=== PATIENT | female | born 1990 ===

== ENCOUNTER → 2023-11-05 12:18 | Outpatient (CLI) | payer OTHER, SELFPAY ==
--- NOTE | 2023-11-05 12:23 | DI.US.S_ITS ---
PROCEDURE: US RENAL COMPLETE INDICATIONS: LEFT LOWER QUADRANT PAIN. . TECHNIQUE: Real-time scanning was performed of the kidneys and bladder, with image documentation. COMPARISON: None. FINDINGS: Kidneys: Kidneys are normal in size. Right kidney measures 10.2 cm long; left kidney measures 2.0 cm long. Right renal cortical thickness is 9.7 cm; left renal cortical thickness is 1.9 cm. Renal cortical echotexture is normal. No hydronephrosis or nephrolithiasis. No suspicious solid mass lesions. Bladder: Post-void residual is 25 mL. Pre-void images demonstrate no intraluminal masses or stones. On pre-void images, either ureteral jets are noted with color Doppler interrogation. (Of note, ureteral jets may not be detectable in up to 25% of cases due to insufficient differences in specific gravity between ureteral and bladder urine). Miscellaneous: No free pelvic fluid. IMPRESSION: Normal sonographic appearance of the kidneys and bladder. Dictated by: Davis Slaughter M.D. on 11/05/2023 at 13:53 Approved by: Davis Slaughter M.D. on 11/05/2023 at 13:57
--- NOTE | 2023-11-05 12:23 | DI.US.S_ITS ---
PROCEDURE: US OB LIMITED INDICATIONS: LEFT LOWER QUADRANT PAIN - EVALUATE OVARIES OUTSIDE/PRIOR DATING DATA: The calculations are made using the provided ANTOINE of 04/27/2024. TECHNIQUE: Real-time scanning was performed of the fetus and maternal ovaries, with image documentation. Color and spectral Doppler of the ovaries was performed. Endovaginal scanning: Not performed COMPARISON: None. FINDINGS: A single living intrauterine gestation is present. Presentation: Variable. Placenta: Placental position is posterior, without previa. Amniotic fluid index: Visibly normal heart rate: 150 beats per minute. Maternal cervical canal: Not evaluated Clinically estimated gestational age: 15 weeks 1 day Targeted ultrasound of the ovaries was performed. The right ovary was not visualized due to overlying bowel gas and positioning. Left ovary measures 5.6 x 2.8 by 3.6 centimeters, volume of 29 milliliter. Normal arterial and venous waveforms. IMPRESSION: Right ovary not visualized. Left ovary is mildly enlarged, measuring 29 milliliter. No cyst or mass identified. Normal arterial and venous waveforms. Dictated by: Davis Slaughter M.D. on 11/05/2023 at 13:58 Approved by: Davis Slaughter M.D. on 11/05/2023 at 14:00
== END ==
LOC: US 12:22
PROVIDERS: Referring Provider Nurse Practitioner Obstetrics & Gynecology; Visit Provider Nurse Practitioner Obstetrics & Gynecology
DX: O99.891 Other specified diseases and conditions complicating pregnancy (principal); R10.32 Left lower quadrant pain; Z3A.15 15 weeks gestation of pregnancy
CPT/HCPCS: 76770; 76815

== ENCOUNTER → 2023-11-07 09:37 | Outpatient (CLI) | payer OTHER, SELFPAY ==
[2023-11-07 10:39] LABS: Add Manual Diff / Slide Review NO; Basophils Absolute Auto 0 /uL (0-100); Basophils Percent Auto 0.2 % (0-2); Eosinophils Absolute Auto 100 /uL (0-450); Hematocrit 39.3 % (36-46); Hemoglobin 13.5 g/dL (12.0-16.0); Lymphocytes Absolute Auto 1800 /uL (1100-4500); Lymphocytes Percent Auto 16.9 % (25-40); Mean Corpuscular HGB Conc 34.5 % (30-36); Mean Corpuscular Hemoglobin 31.7 PG (26-34); Mean Corpuscular Volume 91.8 fL (80-100); Monocytes Absolute Auto 800 /uL (0-900); Monocytes Percent Auto 7.8 % (3-14); Neutrophils Absolute Auto 7700 /uL (1500-7000); Neutrophils Percent Auto 74.1 % (50-75); Platelet Count 285 X10^3/uL (150-400); Red Blood Cell Count 4.28 X10^6/uL (4.0-5.2); White Blood Cell Count 10.4 X10^3/uL (4.5-11.0)
[2023-11-07 10:57] LABS: Alanine Aminotransferase 19 IU/L (<35); Albumin 3.6 g/dL (3.5-5.0); Albumin Globulin Ratio 0.9 (1.0-2.8); Alkaline Phosphatase 65 U/L (38-126); Aspartate Aminotransferase 26 IU/L (14-36); BUN Creatinine Ratio 8.6 (6-22); Bilirubin Total 0.6 mg/dL (0.2-1.3); Blood Urea Nitrogen 5 mg/dL (7-17); Calcium 9.4 mg/dL (8.4-10.2); Carbon Dioxide 22 mmol/L (22-32); Chloride 105 mmol/L (98-107); Estimated Glomerular Filt Rate > 60 mL/min (>60); Globulin 3.8 g/dL (1.7-4.1); Glucose 78 mg/dL (70-100); HEMOLYSIS < 15 (0-50); Potassium 3.8 mmol/L (3.4-5.1); Sodium 132 mmol/L (137-145); Total Protein 7.4 g/dL (6.3-8.2)
[2023-11-07 12:07] LABS: Glucose Tol Interpretation INTERPRETATION
[2023-11-07 12:46] LABS: Glucose 2 Hour 120 mg/dL (70-140)
[2023-11-07 14:18] LABS: Creatinine Urine Random 216.77 mg/dL; Protein (Total) Urine Random 6 mg/dL (0-12); Protein Creatinine Ratio Urine 0.02 GRAM/24H
[2023-11-09 16:25] LABS: Glucose Fasting 72 mg/dL (70-100)
[2023-11-09 16:25] LABS: Glucose 1 Hour 120 mg/dL (70-170)
== END ==
PROVIDERS: Referring Provider Nurse Practitioner Obstetrics & Gynecology; Visit Provider Nurse Practitioner Obstetrics & Gynecology
DX: Z34.90 Encounter for supervision of normal pregnancy, unspecified, unspecified trimester (principal); Z3A.16 16 weeks gestation of pregnancy; Z13.1 Encounter for screening for diabetes mellitus
CPT/HCPCS: 36415; 80053; 82570; 82951; 82952; 84156; 85025

== ENCOUNTER → 2023-12-12 10:54 | Outpatient (CLI) | payer OTHER, SELFPAY ==
--- NOTE | 2023-12-12 10:55 | DI.US.S_ITS ---
PROCEDURE: US OB >= 14 WEEKS FETUS INDICATIONS: COMPLETE ANATOMY SCAN OUTSIDE/PRIOR DATING DATA: The calculations are made using the working ANTOINE of 04/27/2024. TECHNIQUE: Real-time scanning was performed of the fetus, with image documentation and biometric measurements. Endovaginal scanning: Not performed COMPARISON: None. FINDINGS: General: A single living intrauterine gestation is present. Presentation: Vertex. Placenta: Placental position is posterior , without previa. Amniotic fluid index: 20.1 cm, normal range is 5-24 cm. Single deepest vertical pocket is 5.7 cm. heart rate: 157 beats per minute. Maternal cervical canal: 4.5 cm long. Normal lower limit is 2.5 cm. biometrics: Biparietal diameter: 4.6 cm, 19 weeks 6 days Head circumference: 16.9 cm, 19 weeks 4 days Abdominal circumference: 16 cm, 21 weeks 1 day Femur length: 3.4 cm, 20 weeks 4 days Clinically estimated gestational age: 20 weeks 3 days Composite gestational age from present scan: 20 weeks 2 days Estimated weight and percentile: 372 g, 61 percentile Anatomic survey: Neuro: Ventricles are non-dilated at less than 10 mm. Cisterna magna is normal at 3-11 mm. Cerebellum is normal in size and morphology. Nuchal skin fold: Normal at less than 6 mm between 14-21 weeks gestational age. Face: Nose and lips, facial profile are normal. Spine: No evidence for spina bifida. Heart: 4-chambered heart is present, with normal ventricular outflow tracts. Diaphragm: Diaphragm is intact. Stomach: Left-sided stomach is present. Kidneys: No hydronephrosis. Normal is less than 5 mm in 2nd trimester, less than 7 mm in 3rd trimester. Cord: 3-vessel cord has orthotopic insertion. Bladder: Normal in size. Extremities: All 4 extremities identified. IMPRESSION: Single living intrauterine at 20 weeks 3 days, ANTOINE of 04/27/2024. Estimated weight of 372 g, 61st percentile. Normal anatomy survey. We strive to produce accurate, complete, and clear reports of imaging services. To assist us in improving patient care, this report was composed using standard report templates and voice recognition software. Therefore, it may contain abnormal punctuation, insertions and/or omissions. Occasional wrong-word or sound-alike substitutions may occur. Though we review the report and make efforts to correct it, we do recommend that the report be read carefully in proper context to recognize any text inaccuracies. Dictated by: Davis Slaughter M.D. on 12/12/2023 at 17:09 Approved by: Davis Slaughter M.D. on 12/12/2023 at 17:12
== END ==
PROVIDERS: Referring Provider Nurse Practitioner Obstetrics & Gynecology; Visit Provider Nurse Practitioner Obstetrics & Gynecology
DX: Z34.92 Encounter for supervision of normal pregnancy, unspecified, second trimester (principal); Z3A.20 20 weeks gestation of pregnancy
CPT/HCPCS: 76811

== ENCOUNTER 2024-04-23 12:44 | Inpatient (IN) | payer OTHER, SELFPAY ==
--- NOTE | 2024-04-23 12:55 | PM.OBHP.1 ---
OB HPI Date/Time Date of admission: 04/23/24 Date Patient Seen: 04/23/24 Time Patient Seen: 12:56 History of Present Condition Chief complaint: OBS OF LABOR : 1 Para: 0 Estimated Date of Delivery: 04/27/24 Estimated Gestational Age (weeks): 39.3 Narrative: Diann Eaton is a 33 year old female @ 39wks 3 days by 7wk US presents for labor admission. Seen in clinic this morning with ROM for clear fluid during CE at 1140. Has been feeling mild, irregular cramping for a few days. No vaginal bleeding. Elevated BP in clinic. No headache, vision changes, RUQ pain or increased edema. Uncomplicated care with CNMs. Planning no intervention and previously declined IV access, but agrees to it for the administration of antibiotics. Declined LDASA throughout . Partner, Eyad, is present and supportive. History of Present care: good care, initiated at week # (6wks), number of visits (12) and pounds weight gain (59) Dating criteria: based on 1st trimester US only Ultrasounds: normal mid trimester US Medical complications: none Preadmission Labs Blood type: A (+) positive -: Antibody screen: negative, GBS status: positive, HBsAG: negative, HIV: negative and RPR/VDLR: negative -: Chlamydia screen: not detected and Gonorrhea screen: not detected -: Rubella: immune and Varicella: immune HCT: 39.8 HCAB: negative Cell-free DNA: Negative x3 1 hr GTT: 129 Evaluation Evaluation Baseline heart rate: 140 Variability: Moderate (11-25) monitor accelerations: Absent Monitor Decelerations: Variable (single) Dilation (cm): 3 Effacement (%): 70 Dilation: 3-4 cm Effacement: 60-70% station: -3 Position of cervix: posterior Consistency: medium Navarro score: 5 PFSH Medical History (Updated 04/23/24 @ 13:56 by Nancy Fleming CNM) Genital herpes Social History (Updated 04/23/24 @ 13:55 by Nancy Fleming CNM) marital status: household members: significant other lives independently: Yes housing: house Meds Home Medications and Allergies Allergies Allergy/AdvReac Type Severity Reaction Status Date / Time No Known Drug Allergies Allergy Verified 04/23/24 12:59 Review of Systems Review of Systems ROS: Yes All systems reviewed with the patient and are negative except as otherwise documented OB Exam Vital signs Blood Pressure: 149/86 Pulse Rate: 106 Resp Effort & Inspection: normal respiratory effort and able to speak in complete sentences Auscultation: clear to auscultation bilaterally Cardio Rate: regular rate Rhythm: regular rhythm Heart Sounds: S1 normal and S2 normal Extremities Lower extremity: Yes normal to inspection DTR's: Rt Patellar: 1+ and Lt Patellar: 1+ Presentation: vertex Objective Labs 04/23/24 13:40 04/23/24 13:40 Assessment and Plan Assessment and Plan Assessment and Plan narrative: A: Term nullipara PROM x 2 hours without sx of infection GBS prophylaxis indicated Gestational hypertension Cat II FHR P: Admit, routine orders with ampicillin for GBS prophylaxis. Continuous EFM. Counseld on options for expectant vs active management of PROm with through discussion of risks and benefits of each. Bunny strongly declines pitocin. Recommend cycles of breast pump/walk/rest to promote labor and she is n agreement after she eats. During discussion, severe range BP was taken but not sustained for 15 minutes. Counseled on recommendation for BP medication and MgSO4 if severe range BP persists for 15 minute sor more. Notified of patient's admission status and preeclampsia work-up, will consult her if BPs reach severe range. Time-Based Coding :: [TOTAL MINUTES] spent with patient and on the chart (including review of chart, obtaining history, exam, reviewing outside data, placing orders, documenting exam and treatment plan, and counseling patient) on [DATE].
[2024-04-23] MEDS: AMPICILLIN 2,000 MG in SODIUM CHLORIDE 0.9% 100 ML 200 MG IV (13:53)
[2024-04-23] MEDS: LACTATED RINGERS 1,000 ML 100 ML IV (13:53)
[2024-04-23 13:58] VITALS: BP 149/86; PULSE 106
[2024-04-23 14:17] LABS: Add Manual Diff / Slide Review NO; Basophils Absolute Auto 0 /uL (0-100); Basophils Percent Auto 0.3 % (0-2); Eosinophils Absolute Auto 100 /uL (0-450); Eosinophils Percent Auto 0.6 % (2-4); Hematocrit 38.4 % (36-46); Lymphocytes Absolute Auto 1300 /uL (1100-4500); Lymphocytes Percent Auto 14.3 % (25-40); Mean Corpuscular HGB Conc 33.9 % (30-36); Mean Corpuscular Hemoglobin 30.6 PG (26-34); Mean Corpuscular Volume 90.4 fL (80-100); Monocytes Absolute Auto 600 /uL (0-900); Neutrophils Absolute Auto 7100 /uL (1500-7000); Neutrophils Percent Auto 77.8 % (50-75); Platelet Count 263 X10^3/uL (150-400); Red Blood Cell Count 4.25 X10^6/uL (4.0-5.2); Red Cell Distribution Width 14.4 % (11.6-14.8); White Blood Cell Count 9.1 X10^3/uL (4.5-11.0)
[2024-04-23 14:30] LABS: Alanine Aminotransferase 31 IU/L (<35); Albumin 3.6 g/dL (3.5-5.0); Alkaline Phosphatase 141 U/L (38-126); Aspartate Aminotransferase 32 IU/L (14-36); BUN Creatinine Ratio 8.8 (6-22); Bilirubin Total 0.5 mg/dL (0.2-1.3); Blood Urea Nitrogen 6 mg/dL (7-17); Calcium 9.2 mg/dL (8.4-10.2); Carbon Dioxide 19 mmol/L (22-32); Chloride 106 mmol/L (98-107); Estimated Glomerular Filt Rate > 60 mL/min (>60); Globulin 3.6 g/dL (1.7-4.1); Glucose 128 mg/dL (70-100); HEMOLYSIS < 15 (0-50); Potassium 3.4 mmol/L (3.4-5.1); Sodium 136 mmol/L (137-145); Total Protein 7.2 g/dL (6.3-8.2)
[2024-04-23 14:32] LABS: Creatinine Urine Random 70.66 mg/dL; Protein (Total) Urine Random 12 mg/dL (0-12); Protein Creatinine Ratio Urine 0.16 GRAM/24H
[2024-04-23 15:49] VITALS: BP 140/94
[2024-04-23] MEDS: AMPICILLIN 1,000 MG in SODIUM CHLORIDE 0.9% 100 ML 200 MG IV ×2 (17:53→22:02)
--- NOTE | 2024-04-23 19:12 | PM.OBPNLAB ---
Date/Time Date Patient Seen: 04/23/24 Time Patient Seen: 19:00 Pain Control Pain control: other Comments: Ambulating in room, using ball for comfort. Using breast pump to stimulate contractions. She has had one painful contraction during pumping, some mild cramping. Willing to take hima oil because she feels like it is natural, refuses Pitocin. Well supported by [place]. VS: BP 154/80, HR 113, RR 16, Temp 37.1 Pelvic Exam Dilation (cm): 3 Effacement (%): 70 station: -3 Amniotic membrane status: Ruptured ( clear fluid times 7 hours) Comments: Exam from 1140 this am, no recheck due to ROM. Contractions Contractions on admission: irregular Monitor mode: External Contraction frequency (min): 5 (1-5minutes painless) Contraction duration (min): 1 (30-70seconds long ) Contraction pattern: Irregular Contraction intensity: Mild Status status: Category l Heart Rate Baseline: 145 Monitor Accelerations: Present Monitor Decelerations: Absent Monitor Variability: Moderate Assessment and Plan Comments: A: Expectant Management Irregular painless contractions PROM x 7 hours w/out signs of infection [place] oil induction Gestational Hypertension GBS positive RH positive P: [place] oil 2 ounces repeat in 4 hours PRN Continue continuous monitoring. Encouraged rest, nourishment, and hydration Continue Ampicillin for GBS prophylaxis Will recommend appropriate management and consultation as needed for hypertension
--- NOTE | 2024-04-23 23:39 | PM.OBPNLAB ---
Date/Time Date Patient Seen: 04/23/24 Time Patient Seen: 23:30 Pain Control Pain control: tolerating well Comments: Feeling increased pressure and pain with contractions. Up frequently to us the bathroom, in bed now because her legs are tired and hurting from swelling. Diarrhea and vomiting for the past two hours since castor oil. Unable to tell if leaking fluid still due to increased need to be in the bathroom with diarrhea. Discussed options for pain relief if needed, nitrous or IV medications. She feels like labor is progressing and she is coping well, denies need for pain medication. Well supported by Eyad. VS: BP 143/93, HR 100, RR 18, Temp 37.4 Pelvic Exam Dilation (cm): 3 Effacement (%): 70 station: -3 Amniotic membrane status: Ruptured ( clear fluid times 7 hours) Comments: cervical exam not indicated Contractions Monitor mode: External Contraction frequency (min): 2 (1-4minutes ) Contraction duration (min): 1 Contraction pattern: Irregular Contraction phase: Contraction Contraction intensity: Strong/Firm (palpation) Status status: Category l Heart Rate Baseline: 140 Monitor Accelerations: Present Monitor Decelerations: Absent Monitor Variability: Moderate Assessment and Plan Comments: A: Expectant Management Painful contractions PROM x 12 hours w/out signs of infection [place] oil induction Gestational Hypertension GBS positive RH positive P: Continue continuous monitoring. Encouraged rest, nourishment, and hydration Continue Ampicillin for GBS prophylaxis Will recommend appropriate management and consultation as needed for hypertension Redose mark oil if contractions decrease in frequency/intensity
[2024-04-24] MEDS: AMPICILLIN 1,000 MG in SODIUM CHLORIDE 0.9% 100 ML 200 MG IV ×6 (02:13→22:45)
--- NOTE | 2024-04-24 04:05 | PM.OBPNLAB ---
Date/Time Date Patient Seen: 04/24/24 Time Patient Seen: 04:00 Pain Control Comments: Continued painful contractions, and diarrhea. VS: BP 137/82, HR 103, RR 16, temp 98.5 Pelvic Exam Dilation (cm): 3 Effacement (%): 70 station: -3 Amniotic membrane status: Ruptured (17 hours, clear fluid) Comments: Cervical exam not indicated. Contractions Monitor mode: External Contraction frequency (min): 2 (2-4minutes) Contraction duration (min): 1 (30-70seconds) Contraction pattern: Irregular Status status: Category l Heart Rate Baseline: 145 Monitor Accelerations: Present Monitor Decelerations: Absent Monitor Variability: Moderate Assessment and Plan Comments: A: Expectant Management Painful contractions PROM x 17 hours w/out signs of infection [place] oil induction Gestational Hypertension GBS positive RH positive P: Continue continuous monitoring. Encouraged rest, nourishment, and hydration Continue Ampicillin for GBS prophylaxis Strongly recommended antihypertensives for elevated blood pressures. Will recommend appropriate management and consultation as needed for hypertension Redose castor oil if contractions decrease in frequency/intensity
--- NOTE | 2024-04-24 08:39 | P.PNOB_ITS ---
Date/Time Date Patient Seen: 04/24/24 Time Patient Seen: 08:20 Pain Control Comments: Painful contractions have slowed; now sitting up in bed eating breakfast. Able to talk through contractions, but wincing. Occasionally has a big one. She was able to sleep for a few hours total overnight. Still having some diarrhea. Blood pressures have been in severe range at times but not sustained, no headache, visual changes or epigastric pain. Declined BP medications overnight. Reluctant to start Pitocin because she has heard stories about how bad it is. VS: BP -144/88, HR 112, RR-17, Tempt 98.4F Pelvic Exam Dilation (cm): 3 Effacement (%): 70 station: -3 Amniotic membrane status: Ruptured ( clear fluid times 7 hours) Comments: No cervical exam indicated. Contractions Monitor mode: External Contraction frequency (min): 7 (2-10minutes) Contraction pattern: Irregular Status status: Category l Heart Rate Baseline: 140 Monitor Accelerations: Present Monitor Decelerations: Absent Monitor Variability: Moderate Assessment and Plan Plan: begin patient augmentation Comments: A: Labor augmentation indicated PROM x 20 hours w/out signs of infection Gestational Hypertension vs Pre eclampsia Cat I FHR tracing GBS positive RH positive P: Strong recommendation to manage BP and help labor progress to prevent poor outcomes. Options give include: Oral or IV antihypertensives, epidural for BP management; augmentation with Pitocin, or another dose of [place] oil for labor augmentation. Consented to IV labetolol for severe pressures that are not sustained and augmentation with Pitocin. Continue Ampicillin for GBS prophylaxis Initiate Pitocin augmentation per protocol Repeat PET panel today Encourage rest, nutruition and hydration Updated Dr. Matthew on plan of care. Recommend magnesium sulfate if severe range pressures continue.
[2024-04-24 08:54] VITALS: BP 186/108; PULSE 110
[2024-04-24] MEDS: LABETALOL 20 MG/4 ML SYRINGE IV (08:54)
[2024-04-24] MEDS: OXYTOCIN PREMIX 30 UNIT/500 ML PLAST..BAG IV (08:55)
[2024-04-24] MEDS: NIFEdipine 30 MG TAB ER PO (09:55)
[2024-04-24 10:21] LABS: Add Manual Diff / Slide Review NO; Basophils Absolute Auto 100 /uL (0-100); Basophils Percent Auto 0.6 % (0-2); Eosinophils Absolute Auto 100 /uL (0-450); Eosinophils Percent Auto 0.5 % (2-4); Hematocrit 36.9 % (36-46); Hemoglobin 12.5 g/dL (12.0-16.0); Lymphocytes Absolute Auto 1200 /uL (1100-4500); Lymphocytes Percent Auto 11.1 % (25-40); Mean Corpuscular HGB Conc 33.8 % (30-36); Mean Corpuscular Hemoglobin 30.3 PG (26-34); Mean Corpuscular Volume 89.6 fL (80-100); Monocytes Absolute Auto 900 /uL (0-900); Monocytes Percent Auto 7.9 % (3-14); Neutrophils Absolute Auto 8700 /uL (1500-7000); Neutrophils Percent Auto 79.9 % (50-75); Platelet Count 249 X10^3/uL (150-400); Red Blood Cell Count 4.12 X10^6/uL (4.0-5.2); Red Cell Distribution Width 14.7 % (11.6-14.8); White Blood Cell Count 10.9 X10^3/uL (4.5-11.0)
[2024-04-24 10:40] LABS: Alanine Aminotransferase 31 IU/L (<35); Albumin 3.4 g/dL (3.5-5.0); Albumin Globulin Ratio 1.1 (1.0-2.8); Alkaline Phosphatase 124 U/L (38-126); Aspartate Aminotransferase 30 IU/L (14-36); BUN Creatinine Ratio 8.9 (6-22); Bilirubin Total 0.6 mg/dL (0.2-1.3); Blood Urea Nitrogen 7 mg/dL (7-17); Calcium 9.3 mg/dL (8.4-10.2); Carbon Dioxide 20 mmol/L (22-32); Chloride 107 mmol/L (98-107); Estimated Glomerular Filt Rate > 60 mL/min (>60); Globulin 3.2 g/dL (1.7-4.1); Glucose 142 mg/dL (70-100); HEMOLYSIS < 15 (0-50); Potassium 3.5 mmol/L (3.4-5.1); Sodium 136 mmol/L (137-145); Total Protein 6.6 g/dL (6.3-8.2)
[2024-04-24 10:48] VITALS: BP 134/75; PULSE 105
--- NOTE | 2024-04-24 12:30 | PM.OBPNLAB ---
Date/Time Date Patient Seen: 04/24/24 Time Patient Seen: 12:30 Pain Control Pain control: tolerating well Comments: Not having painful contractions. Pitocin infusing at 14mu/min. Sitting in room eating lunch. No severe range blood pressures since Nifedipine at 0945. VS: BP 134/75, HR 105, Temp 37.0C Pelvic Exam Dilation (cm): 3 Effacement (%): 70 station: -3 Amniotic membrane status: Ruptured (24 hours, leaking small amount clear fluid) Comments: No indication for cervical exam Contractions Monitor mode: External Contraction frequency (min): 2 (2-4minutes) Contraction pattern: Regular Contraction phase: Contraction Contraction intensity: Strong/Firm (palpation) Status status: Category l Heart Rate Baseline: 145 Monitor Accelerations: Present Monitor Decelerations: Absent Monitor Variability: Moderate Assessment and Plan Comments: A: Labor augmentation indicated PROM x 24 hours w/out signs of infection Gestational Hypertension vs Pre eclampsia Cat I FHR tracing GBS positive, adequately treated RH positive P: Oral antihypertensives to manage Blood pressure. Augmentation with Pitocin continued Continue Ampicillin for GBS prophylaxis Review repeat PET panel, stable labs. Encourage rest, nutrition and hydration Will update Dr Matthew as needed for management of severe range blood pressures.
[2024-04-24] MEDS: LIDOCAINE 2% (GLYDO) 6 ML GEL TOP (14:55)
--- NOTE | 2024-04-24 16:16 | PM.OBPNLAB ---
Date/Time Date Patient Seen: 04/24/24 Time Patient Seen: 16:16 Pain Control Pain control: other (Nitrous) Comments: Painful contractions started at 1300 with pitocin at 16 mu/min. Not tolerating contractions well when lying in bed, moaning and calling out. Up at bedside now, standing and using Nitrous Oxide, tolerating contractions better while swaying. Pitocin infusing at 11mu/min. VS: BP 137/88, HR 115, RR 18, Temp 36.8C Pelvic Exam Amniotic membrane status: Ruptured (>28 hours) Comments: Offered cervical exam, patient unable to consent at this time due to pain. Contractions Monitor mode: External Pitocin rate (mU/min): 11 Contraction frequency (min): 2 (2-4minutes) Contraction duration (min): 1 Contraction pattern: Regular Contraction phase: Contraction Contraction intensity: Strong/Firm (palpation) Status status: Category l Heart Rate Baseline: 140 Monitor Accelerations: Present Monitor Decelerations: Absent Monitor Variability: Moderate Assessment and Plan Plan: continuous present management Comments: A: Labor augmentation PROM >28 hours w/out signs of infection Gestational Hypertension vs Pre eclampsia Cat I FHR tracing GBS positive RH positive P: Oral antihypertensives (nifedipine) managing Blood pressure. Continue augmentation with Pitocin Continue Ampicillin for GBS prophylaxis Encourage rest, nutrition and hydration Recommend cervical exam. Will update Dr Mathtew as needed for management of severe range blood pressures.
--- NOTE | 2024-04-24 19:16 | PM.AN.REGBLK ---
Regional Block Pre-procedure PMH/ROS narrative: Diann Eaton is a 33 year old female @ 39wks 3 days by 7wk US presents for labor admission. Seen by OB provider clinic 04/23/24 with ROM for clear fluid during CE at 1140. Elevated BP in clinic. No headache, vision changes, RUQ pain or increased edema per notes. Admitted for IOL following SROM. Now requests labor epidural for increasing labor pain unrelieved by other interventions. PSH/Anesthesia history narrative: See pre-anesthesia sheet ASA Class: III Labs: Hct 36.9 % (36-46) 04/24/24 10:15 Plt Count 249 X10^3/uL (150-400) 04/24/24 10:15 Medications: Current Medications Generic Name Dose Route Start Last Admin Trade Name Freq PRN Reason Stop Dose Admin Calcium Carbonate 1,000 mg 04/23/24 12:52 Calcium Carbonate 500 Mg Tab PO Q2HR PRN Dyspepsia Carboprost Tromethamine 250 mcg 04/23/24 12:52 Carboprost 250 Mcg/Ml Ampul IM Q90M PRN Bleeding Fentanyl 100 mcg 04/23/24 12:52 Fentanyl 100 Mcg/2 Ml Inj IV Q1H PRN Pain, Severe (7-10) Oxytocin/Lactated Ringer's 30 unit in 500 mls @ 200 mls/hr 04/23/24 12:52 Oxytocin Premix IV CONT PRN Bleeding Protocol Tranexamic Acid 1,000 mg/ 100 mls @ 600 mls/hr 04/23/24 12:52 Sodium Chloride IV NOW PRN Bleeding Ampicillin Sodium 1,000 mg/ 100 mls @ 200 mls/hr 04/23/24 17:00 04/24/24 18:26 Sodium Chloride IV 200 mls/hr Q4H WILBERT Administration Oxytocin/Lactated Ringer's 30 unit in 500 mls @ 2 mls/hr 04/23/24 13:00 04/24/24 08:55 Oxytocin Premix IV 2 milliunit/min TITRATE WILBERT 2 mls/hr Administration Protocol 2 MILLIUNIT/MIN Calcium Gluconate 4.65 meq/ 60 mls @ 180 mls/hr 04/23/24 14:25 Sodium Chloride IV NOW PRN MAGNESIUM TOXICITY Labetalol HCl 20 mg 04/23/24 14:25 04/24/24 08:54 Labetalol 20 Mg/4 Ml Syringe IV 20 mg PRN PRN Administration SBP>= 160 or DBP >=110 Protocol Lidocaine HCl 20 ml 04/23/24 12:52 Lidocaine 1% 20 Ml INJ INTRA-OP PRN Post Delivery Methylergonovine Maleate 0.2 mg 04/23/24 12:52 Methylergonovine 0.2 Mg Tablet PO Q6HR PRN Heavy Bleeding Methylergonovine Maleate 0.2 mg 04/23/24 12:52 Methylergonovine 0.2 Mg/Ml Vial IM NOW PRN Bleeding Mineral Oil 30 ml 04/23/24 12:52 Mineral Oil 30 Ml Udc TOP PRN PRN Version Misoprostol 800 mcg 04/23/24 12:52 Misoprostol 200 Mcg Tablet CA NOW PRN Bleeding Misoprostol 400 mcg 04/23/24 12:52 Misoprostol 200 Mcg Tablet SL NOW PRN Bleeding Naloxone HCl 0.2 mg 04/23/24 12:52 Naloxone 0.4 Mg/Ml Vial IV Q2MIN PRN Opiate Reversal Ondansetron HCl 4 mg 04/23/24 12:52 Ondansetron 4 Mg/2 Ml Inj IV Q4HR PRN Nausea And Vomiting Oxytocin 10 unit 04/23/24 12:52 Oxytocin 10 Unit/Ml Vial IM NOW PRN Bleeding Allergies: Allergies Allergy/AdvReac Type Severity Reaction Status Date / Time No Known Drug Allergies Allergy Verified 04/23/24 12:59 Procedure Insertion date: 04/24/24 Insertion time: 18:26 Prep/Local: 1% lidocaine (Chloraprep skin prep) Interspace: L3-L4 Patient position: sitting Needle: 17 gauge Tuohy Loss of resistance with: saline LISETTE at (cm): 8 Catheter placed at SKIN (cm): 17 Insertion: Yes CSF, No Blood, No Paresthesia with insertion, No Paresthesia with injection and No Test dose reaction Initial Medications TEST DOSE time: 18:49 TEST DOSE: 1.5% lidocaine with epinephrine 1:200k (mL): 3 BOLUS DOSE time: 18:51 BOLUS DOSE (mL): 1 BOLUS DOSE med: other (50mcg fentanyl intrathecal, followed by 50mcg fentanyl, 2ml 1% lidocaine, 2 ml 1.5% lidocaine with epi 1:200k as epidural bolus) Infusion INFUSION: 0.125% bupivacaine and with fentanyl 2 mcg/mL Initial rate (mL/hr): 6 (4ml PCEA q15min) Subsequent interventions: Epidural bolus at 1930 5ml 0.25% bupivacaine, 5ml 2% lidocaine. Patient experienced complete relief following bolus. Additional bolus given at 23:25 (5ml 0.25% bupivacaine, 5ml 2% lidocaine). Taken to OR for C/S @ 02:42, see anesthesia record. Epidural removed @ 05:15, tip intact. Post-procedure Anesthesia date START: 04/24/24 Anesthesia time START: 18:16 Anesthesia date END: 04/26/24 Anesthesia time END: 05:15 Post-procedure Anesthesia Assessment: Yes CV function: HR/BP stable, Yes Resp function: RR/sat/airway adequate, Yes Post-op hydration adequate, Yes Pain control adequate, Yes Nausea & vomiting absent, Yes Temperature > 36 C, Yes Mental status appropriate and No Anesthesia complications
--- NOTE | 2024-04-24 19:31 | PM.OBPNLAB ---
Date/Time Date Patient Seen: 04/24/24 Time Patient Seen: 19:32 Pain Control Pain control: epidural Comments: Contractions painful, consented to exam and ROM. Nitrous no longer working so tried the tub, and then requested epidural. Pelvic Exam Dilation (cm): 4.5 Effacement (%): 100 station: -1 Amniotic membrane status: Ruptured (24 hours, leaking small amount clear fluid; forebag ruptured at 1649 with copious clear fluid) Comments: Blood pressures 130s-140s/80s-90s after nifedipine dose and prior to epidural. Decreased with epidural as low as 113/53 & settled out in 130s/80s. HR elevated when out of bath, getting epidural, as high as 125. Settled down to 110s after she was comfortable. Temp: 36.9 F SpO2 97% Contractions Contractions on admission: irregular (painless) Monitor mode: External Pitocin rate (mU/min): 8 (max dose 16; 11 with ROM of forebag so turned down to 6 mu/min until after epidural in place) Contraction frequency (min): 2 (2-4minutes) Contraction pattern: Regular Contraction phase: Contraction Contraction intensity: Strong/Firm (palpation) Status status: Category l Heart Rate Baseline: 145 Monitor Accelerations: Present Monitor Decelerations: Absent Monitor Variability: Moderate Assessment and Plan Assessment: induction ongoing Comments: at 39w4d in early labor GBS pos, adequately treated GHTN versus pre-eclampsia, managed with nifedipine FHR Cat 1 ROM x 32 hours without s/sx of infection Continue pitocin augmentation of labor Forebag ruptured Comfort measures and then anesthesia called for epidural continue prophylaxis for GBS Recheck in 4 hours or sooner PRN.
[2024-04-24] MEDS: CALCIUM CARBONATE 500 MG TAB 1000 MG PO (23:48)
[2024-04-24] MEDS: ONDANSETRON 4 MG/2 ML INJ IV (23:48)
[2024-04-24] MEDS: LACTATED RINGERS 1,000 ML 1000 ML IV (23:57)
--- NOTE | 2024-04-25 00:19 | PM.OBPNLAB ---
Date/Time Date Patient Seen: 04/25/24 Time Patient Seen: 23:45 Pain Control Pain control: epidural Comments: Torie is comfortable with epidural. Complains of her R arm feeling swollen and IV found to be infiltrated and leaking. Vomited recently and feeling shaky. Contraction pain controlled with epidural, some discomfort with cervical exam. Contractions have spaced out likely due to IV infiltration. Difficulty tracing FHTs; replacing toco/US with Treva to see if better tracing. Feels like she can sleep. Well supported by Eyad. VS: BP 141/78, HR 131, RR 18, Temp 37.1C Pelvic Exam Dilation (cm): 5 Effacement (%): 100 station: -1 Amniotic membrane status: Ruptured (36 hours, leaking small amount clear fluid) Contractions Monitor mode: External Contraction frequency (min): 3 (3-8minutes) Contraction duration (min): 1 (60-90sec) Contraction pattern: Regular Contraction phase: Contraction Status status: Category ll Heart Rate Baseline: 145 Monitor Accelerations: Absent Monitor Decelerations: Variable Monitor Variability: Moderate Assessment and Plan Comments: at 39w4d in early labor GBS positive, adequately treated GHTN versus pre-eclampsia, managed currently with nifedipine FHR Cat II Infiltrated IV/minimal cervical change Plan: Replace IV and restart pitocin at 6mu/min Consider IUPC if no cervical change in 4-6 hours. IV LR bolus
[2024-04-25] MEDS: FENT 2MCG/ML BUPIV 0.125% EPI 200 MCG/100 ML PLAST..BAG 8 MCG EPIDURAL ×3 (03:32→21:53)
[2024-04-25] MEDS: AMPICILLIN 1,000 MG in SODIUM CHLORIDE 0.9% 100 ML 200 MG IV ×5 (03:44→20:04)
[2024-04-25] MEDS: LIDOCAINE 2% (GLYDO) 6 ML GEL TOP (05:33)
--- NOTE | 2024-04-25 06:25 | PM.OBPNLAB ---
Date/Time Date Patient Seen: 04/25/24 Time Patient Seen: 06:05 Pain Control Pain control: epidural Comments: Torie Continues to have good pain control with epidural, has good movement of legs. She has been able to sleep off and on. Pitocin up to 20mu/min. IUPC placed due to minimal cervical change and to titrate Pitocin. Tolerating oral hydration well. Comfortable in upright position due to heartburn which is unrelieved by Tums. VS: BP 136/71, HR 116, RR-18, temp 37.1C, O2 sat 97% Pelvic Exam Dilation (cm): 5.5 Effacement (%): 100 station: -1 Amniotic membrane status: Ruptured (42 hours, leaking large amount of clear fluid) Contractions Monitor mode: External Pitocin rate (mU/min): 20 Contraction frequency (min): 2 (2-3min) Contraction duration (min): 1 Contraction pattern: Regular Status status: Category ll Heart Rate Baseline: 145 Monitor Accelerations: Present Monitor Decelerations: Variable Monitor Variability: Moderate Comments: Irregular variables, moslty lasting 10-15seconds Assessment and Plan Assessment: induction ongoing Comments: in prolonged early labor Adequately treated for GBS Pitocin augmentation Cat II FHR tracing IUPC placed Famotidine ordered for heartburn Pitocin continued
[2024-04-25] MEDS: FAMOTIDINE 20 MG/2 ML VIAL IV ×2 (06:59→20:03)
[2024-04-25] MEDS: CITRIC ACID/SODIUM CITRATE 15 ML SOLUTION 30 ML PO ×2 (07:01→20:04)
[2024-04-25] MEDS: LACTOBACILLUS ACIDOPHILUS TABLET 1 EACH PO ×2 (07:54→17:44)
[2024-04-25] MEDS: NIFEdipine 30 MG TAB ER PO (08:58)
[2024-04-25] MEDS: OXYTOCIN PREMIX 30 UNIT/500 ML PLAST..BAG IV (11:27)
--- NOTE | 2024-04-25 12:14 | PM.OBPNLAB ---
Date/Time Date Patient Seen: 04/25/24 Time Patient Seen: 12:00 Pain Control Pain control: epidural Comments: Diann is comfortable with epidural able to take a nap since last exam. Her heartburn has resolved since taking Pepcid & Bicitra, now able to lay on side and change positions frequently. She has good movement of legs and is able to roll herself. Some discomfort with cervical exam. Caput noted & head well applied to cervix. Pitocin stopped by RN for 1hour break due to no accelerations for a period of time, Cat I tracing now Pitocin restarted at 2mu/min. VS: BP 119/71, HR 121, Temp 36.6C Pelvic Exam Dilation (cm): 6.5 Effacement (%): 100 station: -1 Amniotic membrane status: Ruptured (42 hours, leaking large amount of clear fluid) Comments: Good urine output. Contractions Monitor mode: External Pitocin rate (mU/min): 2 (Restarted) Contraction frequency (min): 5 (2-9minutes) Contraction duration (min): 1 (1-3) Contraction pattern: Regular Intrauterine tone measurement: 30 (Resting tone 30mmHg, MVUs for the past two hours between 40-125mmHg) Status status: Category l Heart Rate Baseline: 145 Monitor Accelerations: Present Monitor Decelerations: Absent Monitor Variability: Moderate Assessment and Plan Assessment: induction ongoing Comments: A: Slow progress, early labor GBS positive adequately treated Rupture of membranes 48 hours w/ no signs of infection Cat I FHR tracing Epidural anesthesia Gestational hypertension vs pre-eclampsia P: Recommend less PO water re: heartburn. Pepcid & bicitra given after vomiting episode. Repeat PET panel Restart Pitocin continue to increase as able, until adequate MVUs Continue GBS prophylaxis Encourage frequent position changes and hydration Dr Matthew updated on patient status and plan of care Recheck in 4-6 hours or as needed
--- NOTE | 2024-04-25 15:52 | PM.OBPNLAB ---
Date/Time Date Patient Seen: 04/25/24 Time Patient Seen: 15:45 Pain Control Pain control: epidural Comments: Difficulty getting continuos FHR tracing due to patient positioning, and maternal habitus. IUPC has come out some and is not accurately reading uterine activity. IUPC/US replaced with Treva which has worked best for continuos monitoring. Contractions continue to be irregularly spaced anywhere from 2-8min. Pain well controlled with epidural, good movement able to change positions often, napping in between. Pitocin up to 18mu/min. Leaking moderate amount of clear fluid. Hydrating well and urine output good. Discussed possibility of if minimal change with next exam, Eyad eager to have baby delivered. Diann open to conversation asking appropriate questions about the process of . Encouraged to continue with positions changes and rest until next exam. VS: BP 133/70, HR 114, RR 17, Temp 37.1C Pelvic Exam Dilation (cm): 7 Effacement (%): 100 station: -1 Amniotic membrane status: Ruptured (52 hours, leaking large amount of clear fluid) Contractions Monitor mode: External Pitocin rate (mU/min): 18 Contraction frequency (min): 5 (2-5minutes) Contraction duration (min): 1 (30-80sec) Contraction pattern: Regular Contraction phase: Contraction Contraction intensity: Strong/Firm (with palpation/IUPC removed) Status status: Category ll Heart Rate Baseline: 150 Monitor Accelerations: Present Monitor Decelerations: Variable Monitor Variability: Moderate Assessment and Plan Assessment: induction ongoing Comments: A: Slow progress GBS positive adequately treated Rupture of membranes 52 hours w/ no signs of infection Cat I FHR tracing Epidural anesthesia Gestational hypertension vs pre-eclampsia P: Repeat PET panel Continue Pitocin increase to 30mu/min maximum dose Continue GBS prophylaxis and give probiotic BID Encourage frequent position changes and hydration Discussed slow progress, and possible need for if no change in 4 hours. IUPC removed; external monitoring resumed due to safety for monitoring. Recheck in 4-6 hours or as needed
[2024-04-25 16:47] LABS: Add Manual Diff / Slide Review NO; Basophils Absolute Auto 0 /uL (0-100); Basophils Percent Auto 0.3 % (0-2); Eosinophils Absolute Auto 0 /uL (0-450); Eosinophils Percent Auto 0.2 % (2-4); Hemoglobin 12.1 g/dL (12.0-16.0); Lymphocytes Absolute Auto 1000 /uL (1100-4500); Lymphocytes Percent Auto 6.2 % (25-40); Mean Corpuscular HGB Conc 33.6 % (30-36); Mean Corpuscular Hemoglobin 30.1 PG (26-34); Mean Corpuscular Volume 89.6 fL (80-100); Monocytes Absolute Auto 2000 /uL (0-900); Monocytes Percent Auto 11.9 % (3-14); Neutrophils Absolute Auto 13500 /uL (1500-7000); Neutrophils Percent Auto 81.4 % (50-75); Platelet Count 215 X10^3/uL (150-400); Red Blood Cell Count 4.01 X10^6/uL (4.0-5.2); Red Cell Distribution Width 14.6 % (11.6-14.8); White Blood Cell Count 16.6 X10^3/uL (4.5-11.0)
[2024-04-25 17:01] LABS: Alanine Aminotransferase 28 IU/L (<35); Albumin 3.1 g/dL (3.5-5.0); Alkaline Phosphatase 136 U/L (38-126); Aspartate Aminotransferase 27 IU/L (14-36); BUN Creatinine Ratio 5.3 (6-22); Bilirubin Total 0.8 mg/dL (0.2-1.3); Blood Urea Nitrogen 4 mg/dL (7-17); Calcium 8.5 mg/dL (8.4-10.2); Carbon Dioxide 22 mmol/L (22-32); Chloride 105 mmol/L (98-107); Estimated Glomerular Filt Rate > 60 mL/min (>60); Globulin 3.2 g/dL (1.7-4.1); Glucose 105 mg/dL (70-100); HEMOLYSIS < 15 (0-50); Potassium 3.1 mmol/L (3.4-5.1); Sodium 134 mmol/L (137-145); Total Protein 6.3 g/dL (6.3-8.2)
[2024-04-25 17:12] LABS: Creatinine Urine Random 26.29 mg/dL; Protein (Total) Urine Random 69 mg/dL (0-12); Protein Creatinine Ratio Urine 2.62 GRAM/24H
[2024-04-25] MEDS: ONDANSETRON 4 MG/2 ML INJ IV (20:04)
--- NOTE | 2024-04-25 20:22 | PM.OBPNLAB ---
Date/Time Date Patient Seen: 04/25/24 Time Patient Seen: 20:00 Pain Control Pain control: epidural Comments: Torie is comfortable now, but just had another epidural bolus due to significant left sided pain. Feeling pressure. Shaky. Nauseated, vomited and gagged for 7 minutes after cervical exam. Getting pepcid, zofran and bicitra again to help. Wants to continue laboring. VS: BP- 113/62, HR 130, Temp 98.9F Pelvic Exam Dilation (cm): 8 Effacement (%): 100 station: -1 Amniotic membrane status: Ruptured (52 hours, leaking large amount of clear fluid) Comments: Fetus OA, asynclitic. Contractions Monitor mode: External Pitocin rate (mU/min): 30 Contraction frequency (min): 2 (2-5minutes, some irritability in between contractions) Contraction pattern: Regular Contraction phase: Contraction Contraction intensity: Strong/Firm (with palpation) Status status: Category ll Heart Rate Baseline: 150 Monitor Accelerations: Present Monitor Decelerations: Variable Monitor Variability: Moderate Assessment and Plan Assessment: induction ongoing Comments: A: at 39w5d Prolonged labor GBS positive adequately treated Rupture of membranes 56 hours w/ no signs of infection Cat II FHR tracing Epidural anesthesia Pre-eclampsia Fetus OA, asynclitic P: Urine protein creatanine ratio 2.62, specimen collected from catheter, added urine analysis to check for blood to confirm PCR value Continue Pitocin 30mu/min - maximum dose Continue GBS prophylaxis and give probiotic BID Encourage frequent position changes and hydration Discussed slow progress, and possible need for if no change in 2 hours. IUPC removed; external monitoring resumed due to safety for monitoring. Dr. Matthew consulted and came to do exam. Asked her to do next exam approx 2130.
[2024-04-25 20:43] LABS: Appearance Urine UA CLEAR; Bilirubin Urine UA NEGATIVE (NEGATIVE); Color Urine UA YELLOW; Glucose Urine UA 3+ g/dL (Negative); Ketones Urine UA NEGATIVE (NEGATIVE); Leukocyte Esterase Urine UA NEGATIVE (NEGATIVE); Nitrite Urine UA NEGATIVE (Negative); Occult Blood Urine UA 3+ (Negative); Protein Urine UA 1+ (Negative); Specific Gravity Urine UA <=1.005 (1.000-1.035); Urobilinogen Urine UA 0.2 E.U./dL (0.2)
[2024-04-25 21:26] LABS: Bacteria Urine None Seen; Culture Indicated Urine Cult Not Indicated; RBC Urine 0-1/HPF (0-5/HPF); Squamous Epithelial Cell Urine 0-1 /HPF (0-5/HPF); Urine Volume 10mL (spun); WBC Urine None Seen (0-5/HPF)
[2024-04-26] MEDS: AMPICILLIN 1,000 MG in SODIUM CHLORIDE 0.9% 100 ML 200 MG IV (00:04)
[2024-04-26] MEDS: LACTATED RINGERS 1,000 ML 100 ML IV (00:09)
--- NOTE | 2024-04-26 01:09 | PM.OBPNLAB ---
Date/Time Date Patient Seen: 04/26/24 Time Patient Seen: 01:31 Pain Control Pain control: epidural Comments: Torie labored to 9.5 cm, and then anterior lip reduced over the course of several contractions. Pushing well, caput at +2. Dr. Matthew assessed; all concerned about large baby and slow progress/protracted labor. Epidural not working well; has had several additions by anesthesia to aid in comfort. WBC 16, up from 9 on admission Temperature Max 100.2 F Pelvic Exam Dilation (cm): 9.5 Effacement (%): 100 station: -1 Amniotic membrane status: Ruptured Comments: Cervical lip successfully reduced by 0115. Contractions Monitor mode: External Pitocin rate (mU/min): 30 Contraction frequency (min): 2 Contraction duration (min): 1 Contraction pattern: Regular Contraction phase: Contraction Contraction intensity: Strong/Firm (with palpation) Status status: Category ll Heart Rate Baseline: 150 Monitor Accelerations: Present Monitor Decelerations: Variable Monitor Variability: Moderate Assessment and Plan Comments: A: at 39w6d with protracted labor 2nd stage labor GBS positive adequately treated Rupture of membranes 61 hours w/elevated WBCs, afebrile Cat I FHR tracing Epidural anesthesia Pre-eclampsia P: Repeat PET serum labs normal. Continue Pitocin at 30mu/min (maximum dose) Continue GBS prophylaxis and give probiotic BID Encourage frequent position changes and hydration Dr. Matthew evaluated; recommended due slow progress, concerns for prolonged 2nd stage, brewing infection. Okay to keep pushing until OR team ready, then will reassess.
[2024-04-26] MEDS: METOCLOPRAMIDE 10 MG/2 ML INJ IV (02:19)
[2024-04-26] MEDS: CITRIC ACID/SODIUM CITRATE 15 ML SOLUTION 30 ML PO (02:29)
--- NOTE | 2024-04-26 02:42 | P.CONS_ITS ---
History of Present Illness Consult details Date Patient Seen: 04/26/24 Time Patient Seen: 02:43 Chief complaint: OBS OF LABOR Reason for consult: Protracted labor, possible Requesting provider: Lina Berger Narrative: Patient is a 33-year-old 1 para 0 at 39-,6/7 weeks gestation who presented on April 23, 2024 with ruptured membranes at 39-,3/7 weeks gestation. Initially she opted to wait for 24 hours before starting any augmentation. She was started on Pitocin on April 24, 2024. She received an epidural for pain management. She had a very slow progression in stage I of labor. She was completely dilated at close to midnight. She has pushed for over an hour without any further descent of the head. GBS positive, status post adequate treatment with penicillin. No maternal fever. Maternal heart rate was slightly elevated upon admission to the Center. heart rate tracing with good [id number] variability for the most part. Meds Home Medications and Allergies Home Medications Medication Instructions Recorded Confirmed Type vitamin with calcium 1 tab PO DAILY 04/24/24 04/24/24 History no.72-iron 27 mg-folic acid 1 mg tablet ( Plus (calcium carbonate)) Allergies Allergy/AdvReac Type Severity Reaction Status Date / Time No Known Drug Allergies Allergy Verified 04/23/24 12:59 Exam Narrative Exam Narrative: Generally: Patient comfortable with epidural, no acute distress Fundal height: 43 cm Estimated weight: 9 lb Extremities: 1+ edema Objective Labs 04/25/24 16:37 04/25/24 16:37 Labs: Laboratory Results - last 24 hr 04/25/24 04/25/24 15:40 16:37 WBC 16.6 H D RBC 4.01 Hgb 12.1 Hct 36.0 MCV 89.6 MCH 30.1 MCHC 33.6 RDW 14.6 Plt Count 215 Neut % (Auto) 81.4 H Lymph % (Auto) 6.2 L Parker % (Auto) 11.9 Eos % (Auto) 0.2 L Baso % (Auto) 0.3 Neut # (Auto) 33202 H Lymph # (Auto) 1000 L Parker # (Auto) 2000 H Eos # (Auto) 0 Baso # (Auto) 0 Sodium 134 L Potassium 3.1 L Chloride 105 Carbon Dioxide 22 BUN 4 L Creatinine 0.76 Estimated GFR > 60 BUN/Creatinine Ratio 5.3 L Glucose 105 H Calcium 8.5 Total Bilirubin 0.8 AST 27 ALT 28 Alkaline Phosphatase 136 H Total Protein 6.3 Albumin 3.1 L Globulin 3.2 Albumin/Globulin Ratio 1.0 Urine Color Yellow Urine Appearance Clear Urine pH 6.0 Ur Specific Bradshaw <=1.005 Urine Protein 1+ H Urine Glucose (UA) 3+ H Urine Ketones Negative Urine Occult Blood 3+ H Urine Nitrate Negative Urine Bilirubin Negative Urine Urobilinogen 0.2 Ur Leukocyte Esterase Negative Urine RBC 0-1/hpf Urine WBC None seen Ur Squamous Epith Cells 0-1 /hpf Urine Bacteria None seen Ur Culture Indicated? Cult not indicated Vol Urine Centrifuged 10ml (spun) U Random Total Protein 69 H Urine Creatinine 26.29 Protein/Creatinin Ratio 2.62 [facility] Medical History (Updated 04/23/24 @ 13:56 by Nancy Fleming CNM) Genital herpes Social History marital status: household members: significant other lives independently: Yes housing: house Tobacco & Substance Use Smoking Status: Never smoker Assessment & Plan Assessment & Plan narrative: Assessment: 33-year-old 1 para 0 at 39-,6/7 weeks gestation with a protracted labor and prolonged rupture of membranes Stage II arrest of labor Plan: Primary low transverse section The risks, benefits, and alternatives to the procedure were explained to the patient. The risks including bleeding, infection, injury to the bowel, bladder, or ureters. She understands these risks and agrees to proceed. A full par Q was held and consent form was signed. Azithromycin 500 mg IV given, Ancef 3 g IV Time-Based Coding :: [TOTAL MINUTES] spent with patient and on the chart (including review of chart, obtaining history, exam, reviewing outside data, placing orders, documenting exam and treatment plan, and counseling patient) on [DATE]. PROFEE Charge Codes Inpatient or Observation consultation: [id number]
--- NOTE | 2024-04-26 02:47 | PM.PREOP ---
Pre-operative Note Interval Note History & Physical reviewed/Exam performed by Physician: Yes Changes to H&P: No H&P completed within 30 days and has changed as indicated here:: 04/23/24
[2024-04-26] MEDS: CEFAZOLIN 2 GM/100 ML PREMIX 100 ML IV (02:55)
[2024-04-26] MEDS: CEFAZOLIN VIAL 3 GM in SODIUM CHLORIDE 0.9% 100 ML IV (02:55)
[2024-04-26] MEDS: GENTAMICIN 370 MG in SODIUM CHLORIDE 0.9% 100 ML 109.25 MG IV (03:00)
[2024-04-26] MEDS: AZITHROMYCIN 500 MG in DEXTROSE 5% IN WATER 250 ML 250 MG IV (03:00)
[2024-04-26] MEDS: TRANEXAMIC ACID 1,000 MG in SODIUM CHLORIDE 0.9% 100 ML 600 MG IV (03:31)
[2024-04-26] MEDS: ACETAMINOPHEN IV 1,000 MG/100 ML VIAL 400 MG IV (03:45)
--- NOTE | 2024-04-26 03:47 | SUR.OPER ---
Supine on padded OR bed, head on pillow, arms secured on padded arm boards at <90 degrees abduction, legs uncrossed.
--- NOTE | 2024-04-26 04:00 | PM.PROC.1 ---
Procedures Date/Time Date of procedure: 04/26/24 Time of procedure: 02:50 General Procedure description: Estimation Manager Documentation I assisted the OB display fabrication supervisor in the section for this patient. My responsibilities included retracting and suctioning, providing fundal pressure during delivery and following with suture during closure. Please see the OB's note for details of the surgery.
[2024-04-26 04:20] VITALS: BP 132/75; PULSE 119; RESP 18; TEMP 37.3; O2SAT 100
--- NOTE | 2024-04-26 04:21 | PM.OBCS.1 ---
Operative Date/Time/Diagnoses Date of procedure: 04/26/24 Time of procedure: 04:21 Pre-op diagnosis: 39-6/7 weeks gestation Gestational hypertension Protracted labor Stage 2 arrest of labor Prolonged rupture of membranes GBS+ Post-op diagnosis: same Procedure & Clinicians Procedure: Primary low-transverse section Excision of bilateral paratubal cysts Same procedure as scheduled: Yes Indications: 39-,6/7 weeks gestation Protracted labor Arrest of second stage Prolonged rupture of Surgeon: Ramonita Araiza Yes if Unassisted: No Health Outcomes Liaison: Lina Berger Reason for Health Outcomes Liaison: The assistant professor surgical technology was necessary to retract upon entry into the abdomen and uterus. She assisted with delivery of the with fundal pressure. She assisted with closure with retraction, clipping of suture, and closure of the contralateral fascia Anesthesia Type: Epidural Operative Notes Findings: Live male in the direct occiput posterior presentation Bilateral paratubal cysts Normal uterus Normal ovaries Closure Type: primary Specimen(s): cord blood and cord pH Intraoperative meds administered: Duramorph, Ketorolac and Pitocin Applied: Catheter (To continuous drainage, bloody at beginning of case, clear in tube after delivery) Estimated Blood Loss (mL): 1,200 Blood products transfused: none Procedure in detail: After informed consent was obtained, the patient was taken to the operating room where she was placed in the dorsal supine position with a leftward tilt and prepped and draped in the usual sterile fashion. A time-out was performed. The head was elevated from below after the vagina was prepped by a second provider. After epidural analgesia was found to be adequate, a Pfannenstiel skin incision was made 2 fingerbreadths above the pubic symphysis, and carried through to the underlying layer of fascia. The fascia was nicked in the midline and the incision extended bilaterally with the Kelly scissors. The superior aspect of the fascial incision was grasped with the Asuncion clamps, elevated, and the underlying rectus muscles dissected off sharply and bluntly. Attention was then turned to the inferior aspect of this incision which in a similar fashion was grasped with the Asuncion clamps, elevated, and the underlying rectus muscles dissected off sharply and bluntly. The rectus muscles were in the midline. The peritoneum was identified, entered sharply with the Metzenbaum scissors. This incision was extended bluntly. A large Herman was placed into the incision. The vesicouterine peritoneum was identified, grasped between a pickup, and entered sharply with the Metzenbaum scissors. This incision was extended bilaterally, and the bladder flap created digitally. The lower uterine segment was incised in a transverse fashion with the scalpel. Upon entering the amniotic sac there was copious clear amniotic fluid. The was found to be in the direct occiput posterior presentation. The 's head was delivered without difficulty. The remainder of the body delivered without difficulty. The infant was wrapped in a warm sterile blanket. The cord was double clamped and cut after 1 minute. Cord bloods were obtained. A piece of cord for cord pH was obtained. Pitocin was given in the IV fluids. Placenta was expressed and the uterus was cleared of all clots and debris. The uterine incision was repaired with #1 Chromic in a running interlocking fashion, a second layer of the same suture was used for an imbricating layer. Hemostasis was achieved. The tubes and ovaries were examined and they were found to be bilateral paratubal cysts and these were removed with the Bovie with care to avoid the tube. Hemostasis was achieved. The ovaries were found to be normal. The Herman was removed from the incision. The gutters were cleared of all clots and debris. The peritoneum was closed using 2-0 Vicryl in a running fashion. The fascia was reapproximated using 0 Vicryl in a running fashion. Hemostasis was achieved in the subcutaneous layer using the Bovie. Five simple interrupted sutures with 3-0 Vicryl were placed to reapproximate the subcutaneous layer. The skin was closed with 4-0 Monocryl in a subcuticular fashion. Steri-Strips and an Allevyn dressing were placed. The uterus was expressed of a small amount of old blood. The uterus was marked at U. Sponge, lap, and instrument counts were correct x2. The patient tolerated the procedure well, and was taken to PACU in stable condition. Complications: none [place] Baby 1: Delivery Date: 04/26/24 Delivery Time: Gender: Male Presentation: vertex Position: Occiput Posterior Placental Delivery Description: Expressed Cord Vessel Description: 3 Vessels and Clamped/Cut (After 1 minute) score (1 min): 8 score (5 min): 9 weight: 8 lb 11.8 oz Post-operative Condition: stable Disposition: PACU Aftercare: routine postop
[2024-04-26 04:25] VITALS: BP 135/85; PULSE 116; RESP 19; O2SAT 100
[2024-04-26 04:30] VITALS: BP 126/82; PULSE 114; RESP 25; O2SAT 100
[2024-04-26] MEDS: fentaNYL 100 MCG/2 ML INJ IV (04:30)
[2024-04-26 04:34] VITALS: BP 138/88; PULSE 114; RESP 23; O2SAT 100
[2024-04-26 04:44] VITALS: BP 144/92; PULSE 109; RESP 14; O2SAT 99
[2024-04-26] MEDS: KETOROLAC 30 MG/ML VIAL IV ×4 (04:44→23:23)
[2024-04-26 04:57] VITALS: BP 137/84; PULSE 110; RESP 20; O2SAT 100
[2024-04-26] MEDS: OXYCODONE IR 5 MG TABLET PO (05:59)
[2024-04-26 07:33] LABS: Urine Volume 10mL (spun)
[2024-04-26 07:38] LABS: Bacteria Urine None Seen; RBC Urine 0-1/HPF (0-5/HPF); Squamous Epithelial Cell Urine None Seen (0-5/HPF); WBC Urine 0-1/HPF (0-5/HPF)
[2024-04-26] MEDS: PRENATAL VIT,CALC/IRON/FOLIC 1 TABLET 1 TAB PO (08:33)
[2024-04-26] MEDS: LANOLIN OINT 7 GM 1 APPLIC TOP (08:33)
[2024-04-26] MEDS: WITCH HAZEL/GLYCERIN PADS 1 EACH TOP (08:33)
[2024-04-26] MEDS: LACTOBACILLUS ACIDOPHILUS TABLET 1 EACH PO ×2 (08:33→16:57)
[2024-04-26] MEDS: DOCUSATE 100 MG CAPSULE PO (08:33)
[2024-04-26] MEDS: NIFEdipine 30 MG TAB ER PO (08:34)
[2024-04-26] MEDS: ACETAMINOPHEN 325 MG TABLET 650 MG PO ×3 (09:34→23:24)
[2024-04-26 11:42] LABS: Add Manual Diff / Slide Review NO; Basophils Absolute Auto 0 /uL (0-100); Basophils Percent Auto 0.2 % (0-2); Eosinophils Absolute Auto 0 /uL (0-450); Eosinophils Percent Auto 0.2 % (2-4); Hematocrit 26.7 % (36-46); Lymphocytes Absolute Auto 1300 /uL (1100-4500); Lymphocytes Percent Auto 6.5 % (25-40); Mean Corpuscular HGB Conc 33.8 % (30-36); Mean Corpuscular Hemoglobin 30.3 PG (26-34); Mean Corpuscular Volume 89.6 fL (80-100); Monocytes Absolute Auto 1600 /uL (0-900); Neutrophils Absolute Auto 16600 /uL (1500-7000); Neutrophils Percent Auto 85.1 % (50-75); Platelet Count 189 X10^3/uL (150-400); Red Blood Cell Count 2.98 X10^6/uL (4.0-5.2); Red Cell Distribution Width 14.6 % (11.6-14.8); White Blood Cell Count 19.4 X10^3/uL (4.5-11.0)
--- NOTE | 2024-04-26 23:51 | PM.OBPN.1 ---
Subjective - OB Subjective Patient comments: no complaints, pain well controlled, tolerating diet, flatus present and other (Voided without the catheter) [place] baby status: doing well and nursing well [place] feeding status: exclusively breast feeding Date Patient Seen: 04/26/24 Time Patient Seen: 17:30 Interval history: Patient doing well. going well. Pain well controlled. Exam Vital Signs (past 8 hours): Oxygen Delivery Method Nasal Cannula Oxygen Flow Rate 2 Narrative Exam Narrative: Generally: Sitting up in bed, holding infant, no acute distress Lungs: Clear to auscultation bilaterally Cardiovascular: Regular rate and rhythm Fundus: Firm at U Incision: Clean dry and intact with Aquacel dressing Extremities: 1+ edema, negative Homans Objective Labs 04/26/24 11:23 04/25/24 16:37 Labs: Laboratory Results - last 24 hr 04/26/24 04/26/24 07:12 11:23 WBC 19.4 H RBC 2.98 L Hgb 9.0 L Hct 26.7 L MCV 89.6 MCH 30.3 MCHC 33.8 RDW 14.6 Plt Count 189 Neut % (Auto) 85.1 H Lymph % (Auto) 6.5 L [place] % (Auto) 8.0 Eos % (Auto) 0.2 L Baso % (Auto) 0.2 Neut # (Auto) 23982 H Lymph # (Auto) 1300 [place] # (Auto) 1600 H Eos # (Auto) 0 Baso # (Auto) 0 Urine RBC 0-1/hpf Urine WBC 0-1/hpf Ur Squamous Epith Cells None seen Urine Bacteria None seen Vol Urine Centrifuged 10ml (spun) Assessment & Plan Plan day: 0 plan OB: routine postop care Time-Based Coding :: [TOTAL MINUTES] spent with patient and on the chart (including review of chart, obtaining history, exam, reviewing outside data, placing orders, documenting exam and treatment plan, and counseling patient) on [DATE].
[2024-04-27] MEDS: IBUPROFEN 600 MG TABLET PO (06:00)
[2024-04-27] MEDS: ACETAMINOPHEN 325 MG TABLET 650 MG PO (06:00)
[2024-04-27] MEDS: DOCUSATE 100 MG CAPSULE PO (09:24)
[2024-04-27] MEDS: LACTOBACILLUS ACIDOPHILUS TABLET 1 EACH PO (09:24)
[2024-04-27] MEDS: PRENATAL VIT,CALC/IRON/FOLIC 1 TABLET 1 TAB PO (09:25)
[2024-04-27] MEDS: NIFEdipine 30 MG TAB ER PO (09:28)
--- NOTE | 2024-05-09 18:42 | P.DS_ITS ---
Discharge Providers Provider Date of admission: 04/23/24 12:44 Discharge Date: 04/27/24 Primary care physician: Butch FUNEZ Provider Consults: 04/26/24 05:27 Consult to Digital Forensics Investigator Routine Comment: Discharge provider: Ramonita Matthew MD Summary Hospital Course Date Patient Seen: 04/27/24 Time Patient Seen: 11:30 Diagnoses: 39-6/7 weeks gestation Prolonged rupture of membranes Pitocin induction of labor Stage II arrest of labor Group B strep positive IV antibiotics for group B strep prophylaxis Primary low-transverse section Hospital Course: Patient is a 33-year-old 1 para 1 who presented on April 23, 2024 with spontaneous rupture of membranes at 39-,6/7 weeks gestation. She initially wanted to wait 24 hours before initiating Pitocin. She received IV antibiotics for group B strep positivity. On April 24, 2024 she was started on Pitocin. She had a very slow progression of stage I of labor. She received an epidural for pain management. During stage II of labor she had no descent of the head after 2 hours of pushing. The decision was made to proceed to a primary low transverse section. She underwent this procedure without complication. Her postoperative course was unremarkable. She was discharged to home on April 27, 2024 to follow-up at 1 week for an incision check. Time Spent with Patient Time attestation: Total time spent providing and/or coordinating discharge services: Objective Labs 04/26/24 11:23 04/25/24 16:37 Exam Vital Signs (past 8 hours): Oxygen Delivery Method Nasal Cannula Oxygen Flow Rate 2 Narrative Exam Narrative: Generally: Patient is sitting up in bed, holding infant, no acute distress Lungs: Clear to auscultation bilaterally Cardiovascular: Regular rate and rhythm Fundus: Firm at U -1 Incision: Clean dry and intact with Aquacel dressing Extremities: 1+ edema, negative Homans Discharge Plan Discharge Plan Patient Disposition: Home Provider Discharge Comment: Call with fever, chills, redness or drainage around the incision, or bleeding vaginally more than a pad in an hour Ibuprofen 600 mg every 6 hours as needed Tylenol 650 mg every 6 hours as needed Colace daily as needed as stool softener Discharge orders & Medications Prescriptions: New ibuprofen 600 mg tablet 600 mg PO Q8H PRN (Reason: pain) Qty: 30 2RF docusate sodium [Colace] 100 mg capsule 100 mg PO DAILY Qty: 20 2RF nifedipine 30 mg tablet extended release 30 mg PO DAILY Qty: 30 0RF oxycodone 5 mg tablet 5 mg PO Q6H PRN (Reason: pain) Qty: 20 0RF Continued Plus (calcium carb) 27 mg iron- 1 mg tablet 1 tab PO DAILY Patient Comments: [NO ORIGINAL SIG] Follow up/Referrals: Nancy Fleming CNM [[facility]] - (One-week follow-up with Lina Berger for blood pressure check and Aquacel removal. Please check your email/text messages for appointment details.) Diet/Activity/Treatments Diet: Regular Activity: No heavy lifting Nothing in the vagina for 6 weeks Skin/Wound/Dressing Care Report to your healthcare provider any signs of infection, such as:: chills, fever, increased pain, unusual drainage and unusual redness Dressing: Do not remove Child Care Provider will remove in 1 week Visit Report/Discharge Packet Instructions: DI for Hemorrhage, DI for , DI for Depression, DI for Prescription Opioid Use, Preeclampsia and Eclampsia After Childbirth Stand Alone Forms: Discharge: Care, Patient Portal/API, Stroke Signs & Symptoms Discharge Data Primary Care Provider: Butch Mendoza
== END 2024-04-27 13:13 | disposition home or self-care (01) | DRG 788 ==
PROVIDERS: Advanced Practice Midwife; Obstetrics & Gynecology; Admitting Provider Nurse Practitioner Obstetrics & Gynecology; Referring Provider Nurse Practitioner Obstetrics & Gynecology; Visit Provider Nurse Practitioner Obstetrics & Gynecology
PROC: 10D00Z1 Extraction of Products of Conception, Low, Open Approach (ICD-10-PCS; CPT 59514; principal; 2024-04-26 07:00)
DX: O42.12 Full-term premature rupture of membranes, onset of labor more than 24 hours following rupture (principal); Z3A.39 39 weeks gestation of pregnancy; Z37.0 Single live birth; O99.824 Streptococcus B carrier state complicating childbirth; O76 Abnormality in fetal heart rate and rhythm complicating labor and delivery; O13.4 Gestational [pregnancy-induced] hypertension without significant proteinuria, complicating childbirth; O62.1 Secondary uterine inertia; O99.892 Other specified diseases and conditions complicating childbirth; N83.8 Other noninflammatory disorders of ovary, fallopian tube and broad ligament
CPT/HCPCS: 36415; 59050; 80053; 81003; 81015; 82570; 84156; 85025; 86850; 86900; 86901; 87070; 87075; 87077; 87186; 87205; G0379; J0134; J0290; J0690; J1885; J2250; J2274; J2405; J2590; J2704; J2765; J3010